=== PATIENT | male | born 1960 | race Caucasian/White ===

== ENCOUNTER → 2021-10-03 | Outpatient (CLI) | payer BC ==
[~2021-10-03] VITALS: Ht 172 cm; Wt 100.0 kg
[~2021-10-03] MED LIST: CATHETER FLUSH 10 ML SYR IVP PRN; CYCL10TA9 PO; HYDR1TAB8 PO; RT-ALBUTEROL SULF 2.5 MG/3 ML PRE-MIX VIAL INH ONE
[2021-10-03 09:01] VITALS: BP 151/104
--- NOTE | 2021-10-03 18:12 | NUCLEAR STRESS TEST ---
TREADMILL NUCLEAR STRESS TEST Date of procedure: 10/03/2021. Primary care provider: Mamie Milan MD. Admitting physician: Lefty Chao Jr., MD. INDICATION: Abnormal electrocardiogram. BASELINE ELECTROCARDIOGRAM: Sinus rhythm with possible old inferoposterior myocardial infarction. STRESS TEST PROCEDURE: The patient was exercised for a total of 6 minutes and 44 seconds of the standard Shilo protocol achieving a maximum MET level of 8.1. The resting heart rate was 84 bpm and the peak heart rate was 142 bpm, which represents 89% of the maximum predicted heart rate. The resting blood pressure was 148/103 mmHg and the peak blood pressure was 195/104 mmHg. This represents a normal heart rate and a normal blood pressure response to exercise. The test was stopped due to fatigue. There was no chest discomfort during the test. There were no arrhythmias during the test. There were no significant stress induced electrocardiogram changes. The patient exhibited good exercise capacity for age. NUCLEAR PROCEDURE: The patient was administered 10.2 mCi of intravenous technetium 99m Tetrofosmin at rest for the rest images. The patient was subsequently administered 30.5 mCi of intravenous technetium 99 M Tetrofosmin at peak stress for the stress images. Following an appropriate wait after each injection, imaging was obtained. The images were subsequently processed and reformatted in the usual views. Gated imaging was obtained. The image quality was adequate with a mild degree of gastrointestinal attenuation artifact. CT attenuation correction was used as a adjunct to standard imaging. Both the corrected and uncorrected images were reviewed for interpretation. NUCLEAR RESULTS: There was a moderate sized, mild intensity, reversible mid to distal anterior and apical defect with a moderate amount of inducible ischemia with a summed stress score of 7 and a summed difference score of 7. There was normal left ventricular chamber size with an end-diastolic volume of 67 mL and an end-systolic volume of 27 mL. There was no evidence of transient ischemic dilatation. The TID ratio was 1.06. There was normal wall motion in all segments with a calculated ejection fraction of 60%. IMPRESSION: 1. Normal heart rate and blood pressure response to exercise. 2. There was no exercise-induced chest discomfort, arrhythmias, or electrocardiogram changes during the test. 3. The patient exhibited good exercise capacity for age at 6 minutes and 44 seconds of the Shilo protocol. 4. There was a moderate sized, mild intensity, reversible mid to distal anterior and apical defect with a moderate amount of inducible ischemia with a summed stress score of 7 and a summed difference score of 7. 5. There was normal wall motion in all segments with a calculated ejection fraction of 60%. 6. This is an abnormal result representing a moderate risk for possible future coronary ischemic events. Certain portions of this document may have been dictated utilizing voice recognition technology. Inherent to this technology, typographical and grammatical errors may exist. As much as I am diligent to identify and correct these mistakes, some errors may remain in the document. LEFTY CHAO JR, MD Oct 03, 2021 18:12
== END ==
LOC: RT 08:00
PROVIDERS: ATTEND Internal Medicine Cardiovascular Disease
DX: R94.31 Abnormal electrocardiogram [ECG] [EKG] (principal)
CPT/HCPCS: 78452; 93017; 94060; 94726; 94729; A9502

== ENCOUNTER 2021-10-24 08:49 | Day surgery (SDC) | payer BC ==
[~2021-10-24] VITALS: Ht 175.3 cm; Wt 102.6 kg
[2021-10-24] VITALS (8 sets, daily range): BP systolic 95–138; BP diastolic 68–91
[~2021-10-24 08:49] MED LIST changes: -CATHETER FLUSH 10 ML SYR IVP PRN; -RT-ALBUTEROL SULF 2.5 MG/3 ML PRE-MIX VIAL INH ONE
[2021-10-24] MEDS ORDERED: HEParin (CATH LAB) 2,000 ML IV ONE (08:57)
[2021-10-24] MEDS ORDERED: LIDOCAINE 1% INJ 20 ML VIAL ONE (08:57)
[2021-10-24] MEDS ORDERED: NS IV 1000 ML 1,000 ML ONE (08:57)
[2021-10-24] MEDS ORDERED: ASPIRIN 81 MG CHEW (CHILDREN'S ASA) PO ONE (09:00)
[2021-10-24] MEDS ORDERED: NS IV 1000 ML 1,000 ML IV ONE (09:00)
[2021-10-24] MEDS ORDERED: CATHETER FLUSH 10 ML SYR IV PRN (09:00)
--- NOTE | 2021-10-24 09:22 | Pre-Op Note & Conscious Sedat ---
Pre-Operative Progress Note Date H&P Reviewed: Oct 24, 2021 Time H&P Reviewed: 09:22 History & Physical: H&P Reviewed, Patient Examed, No changes noted Pre-Op Diagnosis: Abnormal nuclear stress test Conscious Sedation Pre-Proced ASA Score 2 For ASA 3 and 4: Consider anesthesia and medical clearance. Also, for patients with a history of failed moderate sedation consider anesthesia. Airway Lungs Heart ASA score ASA 1: a normal healthy patient ASA 2: a patient with a mild systemic disease (mid diabetes, controlled hypertension, obesity ASA 3: a patient with a severe systemic disease that limits activity (angina, COPD, prior Myocardial infarction) ASA 4: a patient with an incapacitating disease that is a constant threat to life (CHF, renal failure) ASA 5: a moribund patient not expected to survive 24 hrs. (ruptured aneurysm) ASA 6: a declared brain- patient whose organs are being harvested. For emergent operations, add the letter E after the classification Mallampati Classification Grade 2 Sedation Plan Analgesia, Amnesia, Plan communicated to team members, Discussed options with patient/fam, Discussed risks with patient/fam The patient is an appropriate candidate to undergo the planned procedure, sedation, and anesthesia. The patient immediately re-assessed prior to indication. Given his current clinical status he is considered vulnerable. He has no histor y of heart failure. DAVID BACA JR, MD Oct 24, 2021 09:22
[2021-10-24] MEDS ORDERED: LISI10TA25 PO (09:38)
[2021-10-24] MEDS ORDERED: MTP25TSR PO (09:38)
[2021-10-24] MEDS ORDERED: ROSU10TA28 PO (09:38)
[2021-10-24] MEDS ORDERED: ASPI-1238 PO (09:38)
[2021-10-24] MEDS ORDERED: HEParin 1000 UNIT/ML (10ML VIAL) FOR BOLUS ONE (09:56)
[2021-10-24] MEDS ORDERED: MIDAZOLAM 5 MG/5 ML (VERSED) VIAL ONE (09:56)
[2021-10-24] MEDS ORDERED: VERAPAMIL 5 MG/2 ML (CALAN) VIAL IV ONE (09:56)
[2021-10-24] MEDS ORDERED: NITRO DRIP 25000 MCG/D5W 250 ML IV ONE (09:56)
[2021-10-24] MEDS ORDERED: fentaNYL INJ 100 MCG/2 ML AMP ONE (09:56)
[2021-10-24] MEDS ORDERED: NS IV 1000 ML 1,000 ML IV SCH (11:15)
--- NOTE | 2021-10-24 11:15 | Cardiac Cath Report ---
CARDIAC CATHETERIZATION DATE OF PROCEDURE: 10/24/2021 INDICATION: Abnormal nuclear stress test. HISTORY: The patient is a 61 year old male no previously known history of coronary artery disease who I saw in the office for an evaluation of chest discomfort and dyspnea on exertion. I had him undergo a nuclear stress test that showed a moderate sized anterior ischemic defect with a normal ejection fraction. In light of his symptoms and the abnormal stress test, he is now referred for further evaluation with a cardiac catheterization. Given his current clinical status, he is considered vulnerable. He has no history of heart failure. PROCEDURES PERFORMED: 1. Left heart catheterization with hemodynamic measurements. 2. Diagnostic [place] coronary angiography. PROCEDURE DESCRIPTION: After informed consent and in the fasting state, left heart catheterization was performed through the right femoral artery utilizing a 6 [place] system by percutaneous approach. I initially gained access to the right radial artery with a 6 [place] system by percutaneous approach. However, due to extreme tortuosity in the aortic arch and most likely brachiocephalic trunk, I was not able to torque the catheters to get them to engage the coronary arteries. As such, I changed over to the right femoral approach. I first gained access to the right femoral artery using a micropuncture technique. The 5 [place] micropuncture sheath was then exchanged for a 6 [place] sheath. Standard Luis Eduardo 5 [place] catheters were utilized for the diagnostic portion of the procedure. All catheters were exchanged over a guidewire. Following the procedure, a vascular band was applied to the radial artery access site and the sheath was removed with good hemostasis. Following the procedure, a right femoral artery angiogram revealed the vessel to be free of significant any disease and the sheath entered above the bifurcation. A Mynx closure device was deployed. RESULTS: HEMODYNAMICS: The aortic pressure was 122/67 mmHg. The aortic pressure was 108/0 mmHg with a left ventricular end-diastolic pressure of 10 mmHg. There was no significant pressure gradient upon pullback across aortic valve. CORONARY ANGIOGRAPHY: Left main coronary artery: Free of significant disease. Left anterior descending coronary artery: Free of significant disease. Left circumflex coronary artery: Free of significant disease. Right coronary artery: Dominant and there was a 30% stenosis in the midsegment at the takeoff of the acute marginal branch. IMPRESSION: 1. Normal left heart pressures. 2. Mild single-vessel coronary artery disease with a 30% stenosis in the midsegment of the dominant right coronary artery as outlined above. 3. The patient is known to have normal left ventricular systolic function with a calculated ejection fraction of 60% by nuclear stress test that was performed on 10/03/2021. Certain portions of this document may have been dictated utilizing voice recognition technology. Inherent to this technology, typographical and grammatical errors may exist. As much as I am diligent to identify and correct these mistakes, some errors may remain in the document. DAVID BACA JR, MD Oct 24, 2021 11:15
== END 2021-10-24 14:25 | disposition home or self-care (01) ==
LOC: CATH 08:49 → ICU 11:29 → CATH 14:25
PROVIDERS: ATTEND Internal Medicine Cardiovascular Disease
DX: I25.10 Atherosclerotic heart disease of native coronary artery without angina pectoris (principal); E78.2 Mixed hyperlipidemia; I10 Essential (primary) hypertension; K21.9 Gastro-esophageal reflux disease without esophagitis; E66.9 Obesity, unspecified
CPT/HCPCS: 87081; 93458; C1760; C1894 ×2